=== PATIENT | male | born 1985 | race Caucasian/White ===

== ENCOUNTER 2022-03-29 08:52 | Emergency (ER) | payer OTHER | END 2022-03-29 11:11 | disposition home or self-care (01) | LOC: JD.ED 08:52 | DX: R07.89 Other chest pain (principal) | CPT/HCPCS: 36415; 84484; 93005; 93010; 99283; 99285-25 ==

== ENCOUNTER 2025-05-22 06:28 | Day surgery (SDC) | payer MEDICAID, OTHER ==
[2025-05-22] MEDS: Lactated Ringers 1,000 ML IV SCH (07:10)
[2025-05-22] MEDS ORDERED: Propofol 200 MG/20 ML SDV ONE (07:14)
== END 2025-05-22 08:45 | disposition home or self-care (01) ==
LOC: JD.SDS 06:28
PROVIDERS: ATTEND Surgery
DX: K52.9 Noninfective gastroenteritis and colitis, unspecified (principal); K62.89 Other specified diseases of anus and rectum; I10 Essential (primary) hypertension; Z80.0 Family history of malignant neoplasm of digestive organs
CPT/HCPCS: 45380; J2003; J2704; J7120; 00811